=== PATIENT | male | born 2000 | race Caucasian/White ===

== ENCOUNTER 2022-06-15 04:36 | Emergency (ER) | payer SELFPAY ==
[~2022-06-15] VITALS: Ht 188 cm; Wt 68.2 kg
[2022-06-15 08:43] VITALS: BP 121/71
== END 2022-06-15 08:44 | disposition home or self-care (01) ==
LOC: ER 04:37
DX: T40.412A Poisoning by fentanyl or fentanyl analogs, intentional self-harm, initial encounter (principal); F31.9 Bipolar disorder, unspecified; Z88.0 Allergy status to penicillin; Z59.00 Homelessness unspecified; Z56.0 Unemployment, unspecified; Y92.89 Other specified places as the place of occurrence of the external cause
CPT/HCPCS: 99285

== ENCOUNTER 2022-07-10 19:36 | Emergency (ER) | payer MEDICAID ==
[~2022-07-10] VITALS: Ht 188 cm; Wt 65.0 kg
[2022-07-10 19:58] VITALS: BP 151/104
[2022-07-10] MEDS ORDERED: SALI1KIT9 TOP (20:31)
== END 2022-07-10 20:52 | disposition home or self-care (01) ==
LOC: ER 19:37
DX: B07.0 Plantar wart (principal); F31.9 Bipolar disorder, unspecified; Z88.0 Allergy status to penicillin; Z56.0 Unemployment, unspecified; Z59.00 Homelessness unspecified
CPT/HCPCS: 73630; 99283